=== PATIENT | female | born 1950 | race Caucasian/White ===

== ENCOUNTER → 2016-11-06 | Outpatient (CLI) | payer OTHER ==
--- NOTE | 2016-11-06 16:20 | MA ---
Screening Digital Mammogram With iCAD Analysis Clinical Indications: Routine screening. The patient has a personal history of left breast cancer rubén ated with lumpectomy, chemotherapy and radiation. Her maternal grandmother was diagnosed with breast cancer in her 70s. Technique: Standard cephalocaudal projections are obtained. Digital breast tomosynthesis was performe d in the MLO projection with reconstruction at 1.0 mm slice thickness and composite MLO views reconst ructed. This examination is processed by the iCAD computer aided detection system. Comparison: October 2015, October 2014, October 2013, November 2012, November 2011, December 2010, March 2009. Breast density: Type B; Scattered fibroglandular densities. Findings: CAD was reviewed. Asymmetry at the lumpectomy site in the upper left breast is stable. No m asses, suspicious calcifications or secondary signs of malignancy are seen. There has been no signifi cant change in the appearance of either breast. Vascular calcifications are noted. Impression: Benign post lumpectomy mammography, BI-RADS 2. Recommendation: Routine mammographic screening in one year as long as physical examination is negativ [facility] will send a result letter to the patient. Negative mammography should not preclude additional workup of a clinically suspicious finding. The patient's information is entered into a reminder system with a target due date for her next mammo gram.
--- NOTE | 2016-11-06 17:32 | DX ---
DEXA Bone Mineral Densitometry Clinical Indications: Postmenopausal, history of breast cancer, family history of osteoporosis, scre ening for osteoporosis Comparison: October 17, 2015 (low bone density) Technique: Bone Mineral Densitometry (BMD) by Dual Energy X-Ray Absorptiometry (DEXA) was performed utilizing the L[employer] have it! scanner. The lumbar spine was evaluated in the AP projection. The bilat eral hips and forearm were evaluated in the AP projection. Vertebral fracture assessment was also pe rformed. AP Lumbar Spine: The L1, L2, L3 and L4 vertebral bodies were evaluated. BMD: 1.116 gm/cm2 T-score: -0.6 SD Z-score: 1.3 SD No significant change. Incidentally noted are stable gallstones in the right abdomen. AP Left Hip: Total BMD: 0.743 gm/cm2 T-score: -2.1 SD Z-score: -0.5 SD No significant change. AP Right Hip: Total BMD: 0.655 gm/cm2 T-score: -2.8 SD Z-score: -1.2 SD Significantly decreased by 6.3% AP Left Forearm, 10/13: BMD: 0.659 gm/cm2 T-score: -2.5 SD Z-score: -0.8 SD No significant change. Vertebral Fracture Assessment: No significant fracture deformity. No prevertebral aortic calcificati on, significant marginal bone spurring, facet arthrosis, or intrinsic vertebral body sclerosis that would effect the accuracy of the lumbar spine BMD measurement. Conclusion: Considering the lowest measured site, the patient is now osteoporotic and at increased r isk for fracture. The ten year FRAX risk for any major osteoporotic fracture , which excludes the risk for a wrist frac ture, is 19.9% and for a hip fracture is 5%. Any bone loss in this patient is probably related to aging or estrogen deficiency. Consider excluding secondary metabolic causes of bone loss (reported to be present in as many as 30% of patients with normal Z scores). Basic laboratory evaluation might include blood chemistries (calci um, phosphorus, alkaline phosphatase, liver function tests, creatinine, total protein), complete bloo d count, serum 25-OH- vitamin D3 level, 24-hour urine calcium, serum TSH and serum PTH. Targeted l aboratory testing based on individual patient circumstances might include serum electrophoresis (SPEP or UPEP), anti-tissue transglutaminase antibody levels (celiac disease) , serum bone specific alkal ine phosphatase, bone turnover markers (urine, serum) or fibroblast growth factor 23 (FGF 23)(evaluat e for unexplained osteomalacia). If secondary causes are excluded, then consider initiating treatment with a bisphosphonate (such as F osamax, Actonel or Boniva). If the patient is unable to use an oral bisphosphonate, another agent suc h as IV bisphosphonates (Boniva or Reclast), teriparatide (Forteo), a selective estrogen receptor mo dulator (Evista) or denosumab ( anti RANKL monoclonal antibody) might be considered. If antiresorptive therapy is initiated and if clinically indicated, consider obtaining a baseline and 3 month followup bone resorption marker (NTX, CTX, TRAP5b or Pyridinoline, deoxypyridinoline) to mon itor the therapeutic effect. Supplementing an insufficient diet to achieve total intakes of 1500 mg calcium and 800 International Units of vitamin D daily should be considered. Osteoporosis prevention and treatment begins by modify ing risk factors. The patient should be encouraged to participate in a regular exercise program that includes weightbearing and muscle strengthening regimens, as is clinically appropriate. Recommend follow-up DEXA in one year to assess the efficacy of pharmacologic intervention and/or bianca ection of appropriate secondary cause.
== END ==
LOC: FIMAGING 10:31
PROVIDERS: ATTEND Internal Medicine Hematology & Oncology
DX: Z12.31 Encounter for screening mammogram for malignant neoplasm of breast (principal); Z13.820 Encounter for screening for osteoporosis; M81.0 Age-related osteoporosis without current pathological fracture; M85.80 Other specified disorders of bone density and structure, unspecified site; Z80.3 Family history of malignant neoplasm of breast; Z78.0 Asymptomatic menopausal state; Z82.62 Family history of osteoporosis
CPT/HCPCS: G0202

== ENCOUNTER → 2016-12-21 | Outpatient (CLI) | payer OTHER | LOC: BHFA 15:00 | PROVIDERS: ATTEND Internal Medicine Cardiovascular Disease | DX: I49.9 Cardiac arrhythmia, unspecified (principal); I34.0 Nonrheumatic mitral (valve) insufficiency ==

== ENCOUNTER → 2016-12-29 | Outpatient (CLI) | payer OTHER | LOC: BHFA 14:00 | PROVIDERS: ATTEND Internal Medicine Cardiovascular Disease | DX: I34.8 Other nonrheumatic mitral valve disorders (principal) ==

== ENCOUNTER → 2017-01-15 | Outpatient (CLI) | payer OTHER | LOC: BHFA 13:00 | PROVIDERS: ATTEND Internal Medicine Cardiovascular Disease | DX: I49.9 Cardiac arrhythmia, unspecified (principal); I34.0 Nonrheumatic mitral (valve) insufficiency ==

== ENCOUNTER 2017-01-25 07:36 | Day surgery (SDC) | payer OTHER ==
[2017-01-25] MEDS ORDERED: BENZOCAINE UNIT DOSE SPRAY HURRICAINE MM ONE (07:42)
[2017-01-25] MEDS ORDERED: diphenhydrAMINE 25 MG CAP PO ONE (07:42)
[2017-01-25] MEDS ORDERED: FAMOTIDINE 20 MG TAB PO ONE (07:42)
[2017-01-25] MEDS ORDERED: NS 1,000 ML IV ONE ×2 (07:42)
[2017-01-25] MEDS ORDERED: ASPIRIN EC 325 MG TAB PO ONE (07:42)
[2017-01-25] MEDS ORDERED: DIAZEPAM 5 MG TAB PO ONE (07:42)
[2017-01-25] MEDS ORDERED: MIDAZOLAM 2 MG/2 ML VIAL IVP ONE (07:42)
[2017-01-25] MEDS ORDERED: fentaNYL 100 MCG/2 ML INJ IVP ONE (07:42)
--- NOTE | 2017-01-25 08:16 | CPEKG ---
Heart Rate: 50 RR Interval: 1200 P-R Interval: 216 QRSD Interval: 112 QT Interval: 492 QTC Interval: 449 P Shipman: 54 QRS Shipman: 65 T Wave Shipman: 66 EKG Severity - ABNORMAL ECG - EKG Impression: SINUS RHYTHM EKG Impression: LEFT ATRIAL ABNORMALITY EKG Impression: NONSPECIFIC INTRAVENTRICULAR CONDUCTION DELAY EKG Impression: LEFT VENTRICULAR HYPERTROPHY Electronically Signed By: Gabriel Remy 25-Jan-2017 18:14:58
[2017-01-25] MEDS ORDERED: fentaNYL 100 MCG/2 ML INJ ONE (08:31)
[2017-01-25] MEDS ORDERED: MIDAZOLAM 2 MG/2 ML VIAL ONE (08:31)
[2017-01-25] MEDS ORDERED: LIDOCAINE 1% 30 ML SDV ONE (08:31)
[2017-01-25 08:32] LABS: % IMMATURE GRANULYOCYTES 0.2 % (0.0-1.1); ABSOLUTE IMMATURE GRANULOCYTES 0.01 10^3/uL (0.00-0.10); ADD DIFF? NO; ADD MORPH? NO; ADD SCAN? NO; ATYPICAL LYMPHOCYTE FLAG 10 (0-99); FRAGMENT RBC FLAG 0 (0-99); HEMATOCRIT 44.6 % (38.0-47.0); HEMOGLOBIN 15.1 g/dL (12.6-16.3); LEFT SHIFT FLG 0 (0-99); LIPEMIA HEMOLYSIS FLAG 90 (0-99); MEAN CELL HEMOGLOBIN 32.3 pg (27.9-34.1); MEAN CELL HEMOGLOBIN CONCENTR. 33.9 g/dL (32.4-36.7); MEAN CELL VOLUME 95.5 fL (81.5-99.8); MEAN PLATELET VOLUME 9.9 fL (8.7-11.7); PLATELET CLUMPS FLAG 0 (0-99); PLATELET COUNT 196 10^3/uL (150-400); RED BLOOD CELL COUNT 4.67 10^6/uL (4.18-5.33); RED CELL DISTRIBUTION WIDTH 13.3 % (11.5-15.2)
[2017-01-25] MEDS ORDERED: IOPAMIDOL (ISOVUE-370) 150 ML BTL IV ONE (08:32)
[2017-01-25 08:49] LABS: INR 1.1 (0.83-1.16); PROTIME(PATIENT) 14.1 SEC (12.0-15.0)
[2017-01-25 09:03] LABS: ANION GAP 9 mEq/L (8-16); CALCIUM 9.5 mg/dL (8.5-10.4); CARBON DIOXIDE 26 mEq/l (22-31); CHLORIDE 107 mEq/L (97-110); CHOLESTEROL 224 mg/dL (140-220); CHOLESTEROL/HDL RATIO 2.38 RATIO (1.00-4.44); CREATININE 0.7 mg/dL (0.6-1.0); GLOMERULAR FILTRATION RATE > 60; GLUCOSE 87 mg/dL (70-100); HIGH DENSITY LIPOPROTEIN 94 mg/dL (40-85); LDL/HDL RATIO 1.19 RATIO (1.00-3.22); LOW DENSITY LIPOPROTEIN 112 mg/dL (80-100); MAGNESIUM 2.1 mg/dL (1.6-2.3); NON-HIGH DENSITY LIPOPROTEIN 130 mg/dL (90-129); POTASSIUM 4.8 mEq/L (3.5-5.2); SODIUM 142 mEq/L (134-144); TRIGLYCERIDE 91 mg/dL (35-135); VERY LOW DENSITY LIPOPROTEINS 18 mg/dL (8-25)
[2017-01-25] MEDS ORDERED: ATROPINE SULFATE 1 MG/10 ML SYR ONE (11:35)
--- NOTE | 2017-01-25 13:02 | CPIP ---
[f rep st] INVASIVE CARDIAC PROCEDURE DATE OF PROCEDURE: 01/25/2017 PROCEDURES: 1. Coronary angiography. 2. Left ventriculography. 3. Right heart catheterization. INDICATION: Preoperative evaluation prior to mitral valve surgery. ACCESS: Patient was prepped and draped in sterile fashion. 1% lidocaine was used to anesthetize th e right inguinal region. A 6-Sri [place]ankan introducer sheath was placed selectively into the right common femoral artery via modified Seldinger technique. A 7-[place]ankan introducer sheath was placed selectivel y into the right common femoral vein via modified Seldinger technique. CORONARY ANGIOGRAPHY: A 6-[place]ankan JL4 was advanced to the left main coronary artery and images obtai carmela. The left main coronary artery bifurcated into an LAD and circumflex coronary arteries. The le ft main coronary artery appeared normal. The left anterior descending coronary artery gave rise to 1 prominent diagonal branch. The left anterior descending coronary artery and its complement of amisha gonal branches appeared normal. The circumflex coronary artery was a large vessel, but was nondomin ant. Circumflex coronary artery gave rise to 1 prominent OM branch as well as 2 smaller OM branches and a posterior lateral branch. The circumflex coronary artery and its branches appeared normal. A 6-[place]ankan JR4 was advanced to the right coronary artery and images obtained. The right coronary ar marilee is dominant. The right coronary artery appeared normal. LEFT VENTRICULOGRAPHY: A 6-[place]ankan pigtail catheter was advanced into the left ventricle and images obtained. The left ventricle was normal in size and had normal systolic function. The estimated ej ection fraction was 60%. 2 to 3+ mitral regurgitation could be appreciated. RIGHT HEART CATHETERIZATION: Right heart catheter was advanced in the right atrium and pressure and sat obtained. The right atrial pressure was 4 mmHg. The saturation was 80%. Catheter was then ad vanced in the right ventricle and pressure and sat obtained. The right ventricular pressure was 32/ 6 mmHg with a sat of 81%. Catheter was then advanced in the pulmonary artery position and pressure and sat obtained. The pulmonary artery pressure was 34/13 mmHg with a sat of 81%. The catheter was then advanced in the wedge position, and the pulmonary capillary wedge pressure obtained. The pulm onary capillary wedge pressure was 17 mmHg. The SVC saturation was 83%. The IVC saturation was 80% . The femoral artery saturation was 97%. Cardiac output 6.22. Cardiac index 3.88. COMPLICATIONS: None. CONCLUSIONS: 1. Normal coronary arteries. 2. Normal left ventricular size and systolic function with 2 to 3+ mitral regurgitation. 3. No significant pulmonary hypertension. /[id number]/MODL
[2017-01-25] MEDS ORDERED: OXYCODONE/APAP 5/325 TAB PO PRN (13:04)
[2017-01-25] MEDS ORDERED: HYDROCODONE/APAP 5/325 TAB PO PRN (13:04)
[2017-01-25] MEDS ORDERED: ONDANSETRON 4 MG/2 ML VIAL IVP PRN (13:05)
[2017-01-25] MEDS ORDERED: ATROPINE SULFATE 1 MG/ML VIAL IVP PRN (13:06)
[2017-01-25] MEDS ORDERED: NITROGLYCERIN 0.4 MG BTL SL PRN (13:07)
--- NOTE | 2017-01-27 15:16 | ECHO ---
[id number] + + [address] : : [facility] [address] : : [phone] + Transesophageal Echocardiographic Report + ---+ :Name: IVAN WALTON MStudy Date: 01/25/2017 09:51 AM : : Hospital Admission Number: [id number] Location: [facility]: :: 1950 Gender: Female : :Age: 66 yrs Race: WH : :Reason For Study: Eval Mitral Valve : :History: MVP, Murmur : + ---+ Left Ventricle The left ventricular ejection fraction is normal. Right Ventricle The right ventricle is normal in size and function. Atria Injection of contrast documented no interatrial shunt. The interatrial septum is intact with no evidence for an atrial septal defect. No left atrial mass or thrombus visualized. No thrombus is detected in the left atrial appendage. Mitral Valve There is mild mitral annular calcification. The mitral valve leaflets appear myxomatous. There is severe mitral valve prolapse. There is no mitral valve stenosis. There is severe mitral regurgitation. Tricuspid Valve The tricuspid valve leaflets appear thickened, hooded, and/or redundant, consistent with myxomatous degeneration. There is trace to mild tricuspid regurgitation. Aortic Valve The aortic valve is trileaflet. There is no aortic stenosis. Mild to moderate aortic regurgitation. Pulmonic Valve The pulmonic valve is normal in structure and function. Conclusion A 2D transesophageal echocardiogram with color flow Doppler was performed. 1. There is mild mitral annular calcification. The mitral valve leaflets appear myxomatous. There is severe mitral valve prolapse with severe mitral regurgitation. 2. The tricuspid valve leaflets appear thickened, hooded, and/or redundant, consistent with myxomatous degeneration. There is trace to mild tricuspid regurgitation. 3. The aortic valve is trileaflet. There is no aortic stenosis. Mild to moderate aortic regurgitation. 4. The left ventricular ejection fraction is normal. 5. The interatrial septum is intact with no evidence for an atrial septal defect. Injection of contrast documented no interatrial shunt. Final Reading Physician: Gabriel Remy MD electronically signed on 01/27/2017 03:16 PM Ordering Physician: Gabriel Remy Performed By: Gabriel Remy MD
== END 2017-01-25 16:58 | disposition home or self-care (01) ==
LOC: FCATH 07:36
PROVIDERS: ATTEND Internal Medicine Cardiovascular Disease
PROC: B2111ZZ Fluoroscopy of Multiple Coronary Arteries using Low Osmolar Contrast (ICD-10-PCS; principal; 2017-01-25)
PROC: 4A023N6 Measurement of Cardiac Sampling and Pressure, Right Heart, Percutaneous Approach (ICD-10-PCS; principal; 2017-01-25)
PROC: B2161ZZ Fluoroscopy of Right and Left Heart using Low Osmolar Contrast (ICD-10-PCS; principal; 2017-01-25)
DX: Z01.810 Encounter for preprocedural cardiovascular examination (principal); I34.0 Nonrheumatic mitral (valve) insufficiency; Z85.3 Personal history of malignant neoplasm of breast
CPT/HCPCS: C1760; J0461; J1644; J2250; J3010; Q9967

== ENCOUNTER → 2017-02-09 | Outpatient (CLI) | payer OTHER | LOC: FIMAGING 15:12 | PROVIDERS: ATTEND Thoracic Surgery (Cardiothoracic Vascular Surgery) | DX: Z01.810 Encounter for preprocedural cardiovascular examination (principal) ==

== ENCOUNTER 2017-02-12 05:53 | Inpatient (IN) | payer OTHER ==
[2017-02-09 16:33] LABS: HEMOGLOBIN A1C 5.2 % (4.0-6.0)
[2017-02-12] MEDS ORDERED: niCARdipine/NACL 200 ML IV ONE (06:00)
[2017-02-12] MEDS ORDERED: ceFAZolin 2 GM/DEXTROSE 100 ML IV ONE (06:00)
[2017-02-12] MEDS ORDERED: CITRATE DEXTROSE SOLN 500 ML BAG MISC ONE (06:00)
[2017-02-12] MEDS ORDERED: INSULIN REGULAR HUMAN 100 UNIT in NS 100 ML IV ONE (06:00)
[2017-02-12] MEDS ORDERED: NS 1,000 ML IV ONE (06:00)
[2017-02-12] MEDS ORDERED: SODIUM BICARBONATE 20 MEQ, LIDOCAINE 1% 10 ML in NORMOSOL-R 1,000 ML MISC ONE (06:00)
[2017-02-12] MEDS ORDERED: PHENYLEPHRINE HCL 50 MG in NS 250 ML IV ONE (06:00)
[2017-02-12] MEDS ORDERED: LIDOCAINE 1% 5 ML SDV ID PRN ×2 (06:00→06:50)
[2017-02-12] MEDS ORDERED: NOREPINEPHRINE BITARTRATE 16 MG in NS 250 ML IV ONE (06:00)
[2017-02-12] MEDS ORDERED: MANNITOL 25% 12.5 GM/50 ML VIAL IV ONE (06:00)
[2017-02-12] MEDS ORDERED: AMINOCAPROIC ACID 5 GM/20 ML VIAL IV ONE (06:00)
[2017-02-12] MEDS ORDERED: LIDOCAINE 1% 2 ML INJ ONE (06:13)
[2017-02-12] MEDS ORDERED: PROTAMINE SULFATE 50 MG/5 ML VIAL IVP ONE (06:19)
[2017-02-12] MEDS ORDERED: ALBUMIN 5% 250 ML BOTTLE IV ONE (06:19)
[2017-02-12] MEDS ORDERED: LIDOCAINE 2% 100 MG/5 ML SYR ONE (06:20)
[2017-02-12] MEDS ORDERED: NA BICARBONATE 50 MEQ/50 ML VIAL ONE (06:20)
[2017-02-12] MEDS ORDERED: POTASSIUM Cl (KCl) 20 MEQ/50 ML BAG IV ONE (06:20)
[2017-02-12] MEDS ORDERED: MILRINONE/DEXTROSE/100 ML BAG IV ONE (06:20)
[2017-02-12] MEDS ORDERED: AMINOCAPROIC ACID 5 GM/20 ML VIAL ONE (06:20)
[2017-02-12] MEDS ORDERED: CALCIUM CHLORIDE 1 GM/10 ML INJ ONE (06:20)
[2017-02-12] MEDS ORDERED: MAGNESIUM SULFATE 1 GM/2 ML VIAL ONE (06:21)
[2017-02-12] MEDS ORDERED: CITRATE DEXTROSE SOLN 500 ML BAG ONE (06:21)
[2017-02-12] MEDS ORDERED: DOPamine/DEXTROSE/250 ML BAG IV ONE (06:21)
[2017-02-12] MEDS ORDERED: ADENOSINE 6 MG/2 ML VIAL ONE (06:21)
[2017-02-12] MEDS ORDERED: AMIODARONE HCL 150 MG/3 ML VIAL ONE (06:21)
[2017-02-12] MEDS ORDERED: niCARdipine/NACL/200 ML BAG IV ONE (06:21)
[2017-02-12] MEDS ORDERED: ceFAZolin 1 GM VIAL ONE (06:22)
[2017-02-12] MEDS ORDERED: methylPREDNISolone SOD SUCC 1 GM/8 ML VIAL ONE (06:22)
[2017-02-12] MEDS ORDERED: HEPARIN 10,000 UNIT/10 ML MDV ONE (06:22)
[2017-02-12] MEDS ORDERED: LR 1,000 ML IV ONE (06:50)
[2017-02-12] MEDS ORDERED: MIDAZOLAM 2 MG/2 ML VIAL ONE (07:07)
[2017-02-12] MEDS ORDERED: PROPOFOL/EMULSION 500 MG/50 ML BOTTLE IV ONE (07:13)
[2017-02-12] MEDS ORDERED: REMIFENTANIL HCL 1 MG VIAL ONE (07:13)
[2017-02-12] MEDS ORDERED: fentaNYL 100 MCG/2 ML INJ ONE ×2 (07:13)
[2017-02-12] MEDS ORDERED: DEXAMETHASONE 4 MG/ML VIAL ONE (07:16)
[2017-02-12] MEDS ORDERED: METOCLOPRAMIDE 10 MG/2 ML VIAL ONE (07:16)
[2017-02-12] MEDS ORDERED: ROCURONIUM 100 MG/10 ML VIAL ONE (07:17)
[2017-02-12] MEDS ORDERED: MINERAL OIL 10 ML VIAL TP ONE (07:18)
[2017-02-12] MEDS ORDERED: DEXMEDETOMIDINE HCL 400 MCG in NS 100 ML IV ONE (08:00)
[2017-02-12] MEDS ORDERED: morphINE *ANESTHESIA ONLY* 10 MG/ML VIAL ONE (08:30)
[2017-02-12] MEDS ORDERED: MAGNESIUM SULF 2 GM/WATER 50 ML BAG IV ONE (11:14)
[2017-02-12] MEDS ORDERED: D50W 25 GM/50 ML SYR IVP PRN (11:37)
[2017-02-12] MEDS ORDERED: fentaNYL 100 MCG/2 ML INJ IVP PRN (11:37)
[2017-02-12] MEDS ORDERED: MAGNESIUM HYDROXIDE 30 ML UDCUP PO PRN (11:37)
[2017-02-12] MEDS ORDERED: ONDANSETRON DISINTEGRATING 4 MG TAB PO PRN (11:37)
[2017-02-12] MEDS ORDERED: MEPERIDINE 25 MG/ML SYR IVP PRN (11:37)
[2017-02-12] MEDS ORDERED: POLYETHYLENE GLYCOL 3350 17 GM PKT PO PRN (11:37)
[2017-02-12] MEDS ORDERED: MAGNESIUM SULF 2 GM/WATER 50 ML IV ONE (11:37)
[2017-02-12] MEDS ORDERED: PANTOPRAZOLE SODIUM 40 MG in NS 100 ML IV ONE (11:37)
[2017-02-12] MEDS ORDERED: LACTULOSE 20 GM/30 ML UDCUP PO PRN (11:37)
[2017-02-12] MEDS ORDERED: CEPACOL LOZENGE PO PRN (11:37)
[2017-02-12] MEDS ORDERED: ONDANSETRON 4 MG/2 ML VIAL IVP PRN (11:37)
[2017-02-12] MEDS ORDERED: BISACODYL 10 MG SUPP PR PRN (11:37)
[2017-02-12] MEDS ORDERED: SODIUM CL NASAL 45 ML BTL EACHNARE PRN (11:37)
[2017-02-12] MEDS ORDERED: ACETAMINOPHEN 650 MG SUPP PR PRN (11:37)
[2017-02-12] MEDS ORDERED: METOCLOPRAMIDE 10 MG/2 ML VIAL IVP PRN (11:37)
[2017-02-12] MEDS ORDERED: NS 1,000 ML IV SCH (11:45)
[2017-02-12] MEDS ORDERED: INSULIN REGULAR HUMAN 100 UNIT in NS 100 ML IV SCH (12:00)
[2017-02-12 12:30] LABS: CALCULATED OXYGEN SATURATION 95 % (92-95)
[2017-02-12] MEDS: ALBUMIN 5% 250 ML IV PRN ×2 (12:30→13:35)
[2017-02-12] MEDS: MUPIROCIN 2% 22 GM OINT NS SCH ×3 (12:49→19:52)
--- NOTE | 2017-02-12 12:49 | POSTOPPROG ---
Post Op Note Date of Operation: 02/12/17 Surgeon: Stephen Ortiz Lisw: Caden Anesthesiologist: Magui Anesthesia: GET(General Endotracheal) Pre-op Diagnosis: MR, AI, AF Procedure: complex MV repair #36 ring, CMIV Inf/Abcess present in the surg proc area at time of surgery?: No EBL: 100-500 Drains: Other (2 blakes)
[2017-02-12] MEDS: ceFAZolin 2 GM/DEXTROSE 100 ML IV SCH ×2 (13:39→21:35)
--- NOTE | 2017-02-12 13:59 | GOP ---
[f rep st] OPERATIVE REPORT DATE OF OPERATION: 02/12/2017 SURGEON: Stephen Ortiz DO ACADEMIC SUPPORT COORDINATOR: Michaela Negrete, PAC ANESTHESIOLOGIST: Preet Mirza MD PREOPERATIVE DIAGNOSIS: 1. Severe mitral insufficiency. 2. Mild aortic insufficiency. 3. Persistent atrial fibrillation. POSTOPERATIVE DIAGNOSIS: 1. Severe mitral insufficiency. 2. Mild aortic insufficiency. 3. Persistent atrial fibrillation. PROCEDURE PERFORMED: 1. Bray- Maze IV both left and right side ablations, utilizing both cryo and radiofrequency ablation . 2. Resection of left atrial appendage with Atra clip. 3. Complex mitral valve repair with sliding leaflet plasty of P2, reduction of posterior leaflet he ight, and #36 physio annuloplasty ring. FINDINGS: DESCRIPTION OF PROCEDURE: The patient presented with atrial fibrillation and symptomatic severe joan ral insufficiency with marked left atrial enlargement. She was consented for mitral valve repair. Because of her aortic insufficiency, minimally invasive procedure was not offered. There was concer n that she may need aortic valve replacement as well, although she was marginal based on criteria. She was consented for surgery, brought to the operating room, intubated, monitoring lines were place d. She was prepped and draped in sterile classical manner. Transesophageal echo confirmed large le aflets with anteriorly directed jet consistent with posterior leaflet pathology. She was noted to h ave markedly increased dimensions of her posterior leaflet and the potential for ORTIZ post repair. T his was taken into consideration. Sternotomy was performed. She was heparinized, cannulated by cav al cannulas, cardiopulmonary bypass was begun. We did GP testing on the right side and found 3 site s that were ablated. We attempted to do it on the left, however left atrial appendage was enormous, at least 5.5 cm at the base and at least 5 cm long. It should be also noted that all 4 chambers we re markedly enlarged, given this very tiny lady. I was unable to do GP testing on the left just bec ause of safe exposure. For that reason, it was aborted. We then proceeded with arresting the heart , and because of her large left atrium had difficulty encircling it with a clamp and, for that reaso n, decided to use cryo after arresting the heart. Initially, I did the coronary sinus with cryoabla tion at the terminus of the right and left vessels, which was marked for future identification. Thi s was done for 2 minutes. I then resected part of the left atrial appendage, and placed a clamp acr oss into the left superior pulmonary vein, and did multiple ablations there. We then placed the lar gest Atra clip across the base of the appendage with occlusion. I then exposed the mitral valve thr ough the right superior pulmonary vein and placed retractors. The patient had a markedly enlarged l eft atrium, approximately 6 cm. Myxomatous valve was a typical Springer's thickened, billowing, and f illing most of the left atrium. I initially did cryo to the isthmus and for the floor and roof lesi on, and then did an antrum cryo on the left side, connecting with those previous lines in order to c reate a box set. I then began inspection of the valve. I placed annuloplasty sutures circumferenti ally to better expose it. It was very thickened and fibrotic. There was no true chordal rupture, h owever there was marked anteriorly directed leakage with distention of the ventricle. I then did a quadrangular resection, and then detached the posterior leaflet, lowering the height of it to approx imately 1/3 of what would ultimately be the AP diameter. These were reapproximated with Sedan-Miguelito mccall tures on the leaflet and 4-0 Prolene on the leaflet to anulus. Distention of the ventricle revealed no regurgitation at that point. I then sized the patient for a 36-38 mm ring, I felt that 36 would get better stronger apposition and should not create ORTIZ, having reduced the height of the posterio r leaflet. This was secured in place with Cor-Knots. Distention of the ventricle revealed no regur gitation. Left atrium was then closed. CO2 had been infused throughout the procedure. The aortic insufficiency never presented a problem with administering antegrade cardioplegia, and an LV sump wa s placed across the valve for early clamp removal on suction. We did this and removed the clamp wit h suction on the ascending aortic vent and LV sump, while the right-sided lesion set was performed. Initially, I did a vertical atriotomy and connected that to the isthmus with cryo, and then did the free wall superior and inferior vena caval lines, avoiding sinus node, utilizing the radiofrequency clamp with multiple lesion sets performed. We then closed the right atrium. With the patient in T rendelenburg, she was allowed to rewarm. The air was removed with venting. The vents were then rem farhad from the left ventricle. She was then weaned from bypass without difficulty. Echo revealed no regurgitation whatsoever, with good coaptation and no ORTIZ. Heparin was reversed with protamine. T he cannula was removed and oversewn. Two ventricular pacing wires, 2 mediastinal drains were placed . The thymic fat and pericardium were closed. The patient was returned to ICU extubated in stable condition. /[id number]/MODL
[2017-02-12] MEDS: POTASSIUM Cl (KCl) 50 ML IV PRN ×2 (14:27→14:28)
[2017-02-12 14:33] LABS: CALCULATED OXYGEN SATURATION 98 % (92-95)
[2017-02-12] MEDS: KETOROLAC 15 MG/1 ML SDV IVP PRN ×2 (16:14→21:53)
[2017-02-12] MEDS: ACETAMINOPHEN 325 MG TAB PO PRN (19:32)
[2017-02-12] MEDS: CYCLOSPORINE 0.05% 1 EACH BOX EACHEYE SCH (19:55)
[2017-02-12 21:57] LABS: HEMATOCRIT 31.2 % (38.0-47.0); HEMOGLOBIN 10.6 g/dL (12.6-16.3); MEAN CELL HEMOGLOBIN 32.8 pg (27.9-34.1); MEAN CELL VOLUME 96.6 fL (81.5-99.8); RED BLOOD CELL COUNT 3.23 10^6/uL (4.18-5.33); RED CELL DISTRIBUTION WIDTH 13.6 % (11.5-15.2)
[2017-02-12] MEDS: traMADol 50 MG TAB PO PRN (23:15)
[2017-02-13] MEDS: HYDROCODONE/APAP 5/325 TAB PO PRN ×4 (00:27→20:39)
[2017-02-13] MEDS: KETOROLAC 15 MG/1 ML SDV IVP PRN ×2 (04:42→20:40)
[2017-02-13 04:44] LABS: % IMMATURE GRANULYOCYTES 0.3 % (0.0-1.1); ABSOLUTE IMMATURE GRANULOCYTES 0.03 10^3/uL (0.00-0.10); ADD DIFF? NO; ADD MORPH? NO; ADD SCAN? NO; ATYPICAL LYMPHOCYTE FLAG 0 (0-99); FRAGMENT RBC FLAG 0 (0-99); HEMATOCRIT 30.4 % (38.0-47.0); HEMOGLOBIN 10.3 g/dL (12.6-16.3); LEFT SHIFT FLG 50 (0-99); LIPEMIA HEMOLYSIS FLAG 90 (0-99); MEAN CELL HEMOGLOBIN 32.5 pg (27.9-34.1); MEAN CELL HEMOGLOBIN CONCENTR. 33.9 g/dL (32.4-36.7); MEAN CELL VOLUME 95.9 fL (81.5-99.8); MEAN PLATELET VOLUME 9.7 fL (8.7-11.7); PLATELET CLUMPS FLAG 0 (0-99); PLATELET COUNT 100 10^3/uL (150-400); RED BLOOD CELL COUNT 3.17 10^6/uL (4.18-5.33); RED CELL DISTRIBUTION WIDTH 13.6 % (11.5-15.2)
[2017-02-13 04:55] LABS: ANION GAP 5 mEq/L (8-16); CALCIUM 7.6 mg/dL (8.5-10.4); CARBON DIOXIDE 24 mEq/l (22-31); CHLORIDE 110 mEq/L (97-110); CREATININE 0.6 mg/dL (0.6-1.0); GLOMERULAR FILTRATION RATE > 60; GLUCOSE 94 mg/dL (70-100); MAGNESIUM 2.4 mg/dL (1.6-2.3); POTASSIUM 5.3 mEq/L (3.5-5.2); SODIUM 139 mEq/L (134-144)
[2017-02-13] MEDS: ceFAZolin 2 GM/DEXTROSE 100 ML IV SCH ×3 (05:00→22:18)
[2017-02-13] MEDS ORDERED: FUROSEMIDE 20 MG/2 ML VIAL ONE (05:06)
[2017-02-13] MEDS ORDERED: FUROSEMIDE 20 MG/2 ML VIAL IV ONE (05:30)
[2017-02-13] MEDS ORDERED: HEPARIN 5,000 UNIT/0.5 ML SYR SC SCH (06:00)
--- NOTE | 2017-02-13 07:38 | SOAPPROG ---
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 Extubated in the OR. Hemodynamically stable early postop course without vasoactive support, tachyarrhythmias, back up pacing or sig volume overload. Antithrombotic prophylaxis with Coumadin. Target INR 2-3. Duration 3 mo pending stability of rhythm. PAF - Preop mitigation with metoprolol. Holding SR s/p CM4. To resume BB prophylaxis, as allowed by BP. Antithrombotic prophylaxis as per MV. Adjunctive baby ASA until INR stable in therapeutic range. Mild to moderate AI - No significant regurgitation by intraop assessment and replacement deferred. Surveillance per cards. Acute expected blood loss anemia - Stable. No transfusions required. Plan: Routine POD#1 orders re lines, drains, wires, orals and mobility. Start coumadin. 2.5 mg today. Colloid prn SBP < 90. Tx to PCU. 02/13/17 07:33 Subjective: Rough night, falling behind on pain control. Better this am. Tolerating sips/ chips and OOB. Pleased that rhythm "behaving". Objective: Vital Signs Temp Pulse Resp BP Pulse Ox 36.7 C 65 14 109/58 L 98 02/13/17 04:00 02/13/17 06:51 02/13/17 06:51 02/13/17 06:51 02/13/17 06:51 Laboratory Results 02/13/17 04:25 02/13/17 04:25 02/12/17 02/13/17 02/14/17 05:59 05:59 05:59 Intake Total 1976.5 Output Total 1858 Balance 118.5 Holding SR. Lowish SBP without reduced UOP or bump in Cr. Minimal suppl O2 req. CXR-> No PTX. No pulm vasc congestion. Small pl eff, L>R. CTOP thinning. No AL. Balanced I/Os. Only +4 kg. Physical Exam - Physical Exam General Appearance: alert, no apparent distress Respiratory: lungs clear (grossly), other (blakes x 2 y-d to pleurovac, serosang drainage, +tidal, no air leak) Cardiac/Chest: regular rate, rhythm, other (Sternum grossly stable. Sternotomy CDI. Vwire intact.) Abdomen: normal bowel sounds, non-tender, soft Skin: warm/dry Extremities: swelling (trace) ICD10 Worksheet Patient Problems: Problems Problem Status Onset Acute blood loss anemia Acute Mild aortic valve regurgitation Acute Myxomatous mitral valve regurgitation Acute PAF (paroxysmal atrial fibrillation) Acute S/P Maze operation for atrial fibrillation Acute ~02/12/17 S/P mitral valve repair Acute ~02/12/17
[2017-02-13] MEDS: PANTOPRAZOLE SODIUM 40 MG TAB PO SCH (08:14)
[2017-02-13] MEDS: buPROPion 75 MG TAB PO SCH (08:14)
[2017-02-13] MEDS: ASPIRIN 81 MG CHEWABLE TAB PO SCH (08:14)
[2017-02-13] MEDS: MUPIROCIN 2% 22 GM OINT NS SCH ×2 (08:20→21:17)
[2017-02-13] MEDS: CYCLOSPORINE 0.05% 1 EACH BOX EACHEYE SCH ×2 (08:21→21:10)
[2017-02-13] MEDS: traMADol 50 MG TAB PO PRN ×2 (08:28→18:21)
[2017-02-13] MEDS: ACETAMINOPHEN 325 MG TAB PO PRN (08:28)
[2017-02-13] MEDS ORDERED: ALBUMIN 5% 250 ML BOTTLE IV ONE (09:04)
[2017-02-13] MEDS ORDERED: BISACODYL 10 MG SUPP PR PRN (10:34)
[2017-02-13 13:27] LABS: POTASSIUM 5.2 mEq/L (3.5-5.2)
[2017-02-13] MEDS ORDERED: WARFARIN SODIUM 2.5 MG TAB PO ONE (16:00)
[2017-02-13] MEDS: SENNOSIDES/DOCUSATE SODIUM TAB PO SCH (20:35)
[2017-02-13] MEDS: LORazepam 0.5 MG TAB PO PRN (22:23)
[2017-02-14] MEDS: HYDROCODONE/APAP 5/325 TAB PO PRN ×3 (05:43→20:30)
[2017-02-14] MEDS: KETOROLAC 15 MG/1 ML SDV IVP PRN ×2 (05:43→20:31)
[2017-02-14] MEDS: traMADol 50 MG TAB PO PRN ×2 (05:43→17:31)
[2017-02-14 06:33] LABS: % IMMATURE GRANULYOCYTES 0.4 % (0.0-1.1); ABSOLUTE IMMATURE GRANULOCYTES 0.04 10^3/uL (0.00-0.10); ADD DIFF? NO; ADD MORPH? NO; ADD SCAN? NO; ATYPICAL LYMPHOCYTE FLAG 0 (0-99); FRAGMENT RBC FLAG 0 (0-99); HEMATOCRIT 27.7 % (38.0-47.0); HEMOGLOBIN 9.4 g/dL (12.6-16.3); LEFT SHIFT FLG 30 (0-99); LIPEMIA HEMOLYSIS FLAG 90 (0-99); MEAN CELL HEMOGLOBIN 33.2 pg (27.9-34.1); MEAN CELL HEMOGLOBIN CONCENTR. 33.9 g/dL (32.4-36.7); MEAN CELL VOLUME 97.9 fL (81.5-99.8); MEAN PLATELET VOLUME 10.8 fL (8.7-11.7); PLATELET CLUMPS FLAG 0 (0-99); PLATELET COUNT 92 10^3/uL (150-400); RED BLOOD CELL COUNT 2.83 10^6/uL (4.18-5.33)
[2017-02-14 06:39] LABS: INR 1.46 (0.83-1.16); PROTIME(PATIENT) 17.7 SEC (12.0-15.0)
[2017-02-14 06:56] LABS: ANION GAP 3 mEq/L (8-16); CALCIUM 8.4 mg/dL (8.5-10.4); CARBON DIOXIDE 26 mEq/l (22-31); CHLORIDE 104 mEq/L (97-110); CREATININE 0.8 mg/dL (0.6-1.0); GLOMERULAR FILTRATION RATE > 60; GLUCOSE 119 mg/dL (70-100); POTASSIUM 4.9 mEq/L (3.5-5.2); SODIUM 133 mEq/L (134-144)
--- NOTE | 2017-02-14 08:16 | SOAPPROG ---
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 Extubated in the OR. Hemodynamically stable early postop course without vasoactive support, tachyarrhythmias, back up pacing or sig volume overload. Antithrombotic prophylaxis with Coumadin. Target INR 2-3. Duration 3 mo pending stability of rhythm. PAF - Preop mitigation with metoprolol. Holding SR s/p CM4. BB prophylaxis, as allowed by BP. Antithrombotic prophylaxis as per MV. Adjunctive baby ASA until INR stable in therapeutic range. Mild to moderate AI - No significant regurgitation by intraop assessment and replacement deferred. Surveillance per cards. Acute expected blood loss anemia - Stable. No transfusions required. Plan: Start gentle diuresis. Start metoprolol 12.5 mg BID w conservative hold parameters. Remove chest tubes and TCPW. Coumadin 2.5 mg today. Wean O2. Baseline postop echo Mon. Cont inc activity and pulm toilet. Dispo - Anticipate home in 48hr. 02/14/17 08:15 Subjective: Doing ok. Slept well. Improving mobility, stamina, and appetite. Objective: Vital Signs Temp Pulse Resp BP Pulse Ox 37.2 C 68 20 109/44 L 97 02/14/17 07:33 02/14/17 07:33 02/14/17 07:33 02/14/17 07:33 02/14/17 07:33 Laboratory Results 02/14/17 06:00 02/14/17 06:00 02/13/17 02/14/17 02/15/17 05:59 05:59 05:59 Intake Total 1976.5 1240 Output Total 1858 740 Balance 118.5 500 PT 17.7 SEC (12.0-15.0) H 02/14/17 06:00 INR 1.46 (0.83-1.16) H 02/14/17 06:00 Holding SR. Upward creep in SBPs. Minimal suppl O2 req. CXR -> no pulm vasc congestion, tiny b/l pl eff L>R. CTOP at removal criteria. Balanced I/Os. Appropriate rise in INR. Physical Exam - Physical Exam General Appearance: alert, no apparent distress Respiratory: lungs clear Cardiac/Chest: regular rate, rhythm (hyperdynamic), diastolic murmur, friction rub, other (Sternum grossly stable. Sternotomy CDI) Abdomen: non-tender, soft Skin: warm/dry Extremities: other (no visible edema) ICD10 Worksheet Patient Problems: Problems Problem Status Onset Acute blood loss anemia Acute Mild aortic valve regurgitation Acute Myxomatous mitral valve regurgitation Acute PAF (paroxysmal atrial fibrillation) Acute S/P Maze operation for atrial fibrillation Acute ~02/12/17 S/P mitral valve repair Acute ~02/12/17
[2017-02-14] MEDS: buPROPion 75 MG TAB PO SCH ×2 (08:39→17:31)
[2017-02-14] MEDS: SENNOSIDES/DOCUSATE SODIUM TAB PO SCH ×2 (08:40→20:30)
[2017-02-14] MEDS: ASPIRIN 81 MG CHEWABLE TAB PO SCH (08:40)
[2017-02-14] MEDS: METOPROLOL TARTRATE 25 MG TAB PO SCH ×2 (08:41→20:31)
[2017-02-14] MEDS: PANTOPRAZOLE SODIUM 40 MG TAB PO SCH (08:41)
[2017-02-14] MEDS: CHOLECALCIFEROL VIT D3 1,000 UNITS TAB PO SCH (08:41)
[2017-02-14] MEDS: CYCLOSPORINE 0.05% 1 EACH BOX EACHEYE SCH ×2 (08:42→20:47)
[2017-02-14] MEDS ORDERED: FUROSEMIDE 20 MG TAB PO SCH (09:00)
[2017-02-14] MEDS: ACETAMINOPHEN 325 MG TAB PO PRN (13:01)
[2017-02-14] MEDS ORDERED: WARFARIN SODIUM 2.5 MG TAB PO ONE (16:00)
[2017-02-14] MEDS: OMEGA-3 FATTY ACIDS 1,000 MG CAP PO SCH (22:43)
[2017-02-14] MEDS: LORazepam 0.5 MG TAB PO PRN (23:43)
[2017-02-15] MEDS: traMADol 50 MG TAB PO PRN ×3 (05:59→18:32)
[2017-02-15 06:36] LABS: HEMATOCRIT 24.4 % (38.0-47.0)
[2017-02-15 06:40] LABS: INR 1.97 (0.83-1.16); PROTIME(PATIENT) 22.5 SEC (12.0-15.0)
[2017-02-15 07:23] LABS: POTASSIUM 4.7 mEq/L (3.5-5.2)
[2017-02-15] MEDS: PANTOPRAZOLE SODIUM 40 MG TAB PO SCH (08:17)
[2017-02-15] MEDS: FERROUS SULFATE 325 MG TAB PO SCH (08:17)
[2017-02-15] MEDS: SENNOSIDES/DOCUSATE SODIUM TAB PO SCH ×2 (08:17→20:48)
[2017-02-15] MEDS: OMEGA-3 FATTY ACIDS 1,000 MG CAP PO SCH (08:17)
[2017-02-15] MEDS: METOPROLOL TARTRATE 25 MG TAB PO SCH ×2 (08:19→20:48)
[2017-02-15] MEDS: ASPIRIN 81 MG CHEWABLE TAB PO SCH (08:19)
[2017-02-15] MEDS: CYCLOSPORINE 0.05% 1 EACH BOX EACHEYE SCH ×2 (08:22→20:51)
--- NOTE | 2017-02-15 08:34 | SOAPPROG ---
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 Extubated in the OR. Hemodynamically stable early postop course without vasoactive support, tachyarrhythmias, back up pacing or sig volume overload. Tubes and wires out. Antithrombotic prophylaxis with Coumadin. Target INR 2-3. Duration 3 mo pending stability of rhythm. PAF - Preop mitigation with metoprolol. Holding SR s/p CM4. BB prophylaxis, as allowed by BP. Maintenance amio dose x 4-6 wks. Antithrombotic prophylaxis as per MV. Adjunctive baby ASA until INR stable in therapeutic range. Mild to moderate AI - No significant regurgitation by intraop assessment and replacement deferred. Surveillance per cards. Acute expected blood loss anemia - Stable. No transfusions required. Lowish H/H well tolerated. 2 wk course Fe suppl started. Plan: Hold diuresis. Cont metoprolol 12.5 mg BID w conservative hold parameters. Add amio 400 mg daily. Decr Coumadin to 2 mg today. Wean O2. Baseline postop echo today. Cont inc activity and pulm toilet. Dispo - Anticipate home tomorrow. 02/15/17 08:32 Subjective: Cont to feel well. Improving mobility and stamina. Stairwork without difficulty. Looking forward to home tomorrow. Objective: Vital Signs Temp Pulse Resp BP Pulse Ox 37.2 C 71 17 97/54 L 86 L 02/15/17 08:00 02/15/17 08:19 02/15/17 08:00 02/15/17 08:19 02/15/17 08:05 Laboratory Results 02/15/17 05:55 02/15/17 05:55 02/14/17 02/15/17 02/16/17 05:59 05:59 05:59 Intake Total 1240 750 Output Total 740 1305 Balance 500 -555 PT 22.5 SEC (12.0-15.0) H 02/15/17 05:55 INR 1.97 (0.83-1.16) H 02/15/17 05:55 Holding SR. Insufficient BP to inc BB. Off O2 w activity. Adequate I/Os. Labs ok. - Pending Discharge Pending Discharge Within 24 Hours: Yes Pending Discharge Date: 02/16/17 Pending Discharge Time: 11:00 Physical Exam - Physical Exam General Appearance: alert, no apparent distress Respiratory: lungs clear Cardiac/Chest: regular rate, rhythm, diastolic murmur, other (Sternum grossly stable. Sternotomy CDI) Abdomen: normal bowel sounds, non-tender, soft Skin: warm/dry Extremities: other (no visible edema) ICD10 Worksheet Patient Problems: Problems Problem Status Onset Acute blood loss anemia Acute Mild aortic valve regurgitation Acute Myxomatous mitral valve regurgitation Acute PAF (paroxysmal atrial fibrillation) Acute S/P Maze operation for atrial fibrillation Acute ~02/12/17 S/P mitral valve repair Acute ~02/12/17
[2017-02-15] MEDS: buPROPion 75 MG TAB PO SCH ×2 (09:01→18:00)
[2017-02-15] MEDS: CHOLECALCIFEROL VIT D3 1,000 UNITS TAB PO SCH (09:01)
[2017-02-15] MEDS: AMIODARONE HCL 200 MG TAB PO SCH (09:04)
[2017-02-15] MEDS: ACETAMINOPHEN 325 MG TAB PO PRN (11:26)
--- NOTE | 2017-02-15 12:08 | ECHO ---
[id number] + + [address] : : [place] [address] : : [phone] + + Adult Echocardiographic Report + ---+ :Name: IVAN WALTON MStudy Date: 02/15/2017 08:27 AM : : Hospital Admission Number: [id number] Location: 213: :: 1950 Gender: Female Height: 65 in : :Age: 66 yrs Race: WH Weight: 121 lb : :Reason For Study: Eval LV Fx, Mitral Valve : : BSA: 1.6 meters2 : :History: Post OP MV #36 physio ring : + ---+ MMode/2D Measurements \T\ Calculations IVSd: 1.2 cm LVIDd: 4.8 cm FS: 45.4 % MV Diam: 3.6 cm LVPWd: 1.2 cm LVIDs: 2.6 cm EDV(Teich): 105.1 ml ESV(Teich): 24.5 ml EF(Teich): 76.7 % Ao root diam: 3.4 cm ACS: 2.1 cm Normal Measurement Values: + + :LVIDd (3.5-5.7cm) IVSd (0.6-1.1cm) LVPWd (0.6-1.1cm) Aortic Root (2.0-3.7cm)Left Atrium (1.5-4.0cm): :LV Vol(d) (76-115ml) LV Vol(s) (29-48ml) Ejec Fraction (50-65%)PV Arpit (0.6- 1.2m/s) TV Arpit (0.4-1.0m/s) : :MV E Arpit (0.8-1.0m/s)MV A Arpit (0.3-1.0m/s)LVOT Arpit (0.7-1.2m/s) Asc Ao Arpit ( 0.9-1.8m/s) : + + Doppler Measurements \T\ Calculations MV E max arpit: MV V2 max: MV P1/2t max arpit: AI max arpit: 154.9 cm/sec 217.2 cm/sec 203.6 cm/sec 403.4 cm/sec MV A max arpit: MV max PG: MV P1/2t: 59.1 msec AI max P.3 cm/sec 18.9 mmHg MVA(P1/2t): 3.7 cm2 65.2 mmHg MV E/A: 2.2 MV V2 mean: MV dec slope: AI dec slope: MV dec time: 112.4 cm/sec 233.0 cm/sec2 0.31 sec MV mean P cm/sec2 AI P1/2t: 6.1 mmHg 507.2 msec MV V2 VTI: 57.8 cm MV area (1 diam): 10.2 cm2 MV Flow area (1diam): 10.2 cm2 LV V1 max: SV(MV 1 diam): 125.9 cm/sec 588.3 ml LV V1 max PG: SI(MV 1 diam): 6.3 mmHg 368.2 ml/m2 Left Ventricle The left ventricle is normal in size. There is normal left ventricular wall thickness. The left ventricular ejection fraction is normal. Ejection Fraction = 77%. The left ventricular wall motion is normal. Right Ventricle The right ventricle is normal in size and function. Atria The left atrium is mildly dilated. Right atrial size is normal. Mitral Valve Mean transmitral gradient is 6 mmHg. There is no mitral regurgitation noted. An annuloplasty ring is noted in the mitral position. Tricuspid Valve Normal tricuspid valve. No tricuspid regurgitation. Aortic Valve The aortic valve is trileaflet. There is no aortic stenosis. Mild to moderate aortic regurgitation. Pulmonic Valve The pulmonic valve is normal in structure and function. There is no pulmonic valvular regurgitation. Great Vessels The aortic root is normal size. Pericardium/Pleural There is no pericardial effusion. Conclusion A complete two-dimensional transthoracic echocardiogram was performed (2D, M-mode, Doppler and color flow Doppler). The left ventricular ejection fraction is normal. Ejection Fraction = 77%. The left ventricular wall motion is normal. The left atrium is mildly dilated. An annuloplasty ring is noted in the mitral position. There is no mitral regurgitation noted. Mean transmitral gradient is 6 mmHg The aortic valve is trileaflet. Mild to moderate aortic regurgitation. There is no pericardial effusion. Compared with 01/25/2017, mitral valve has been repaired Final Reading Physician: Dr Yessenia Mejía electronically signed on 02/15/2017 12:07 PM Ordering Physician: Michaela Negrete Performed By: Shon Bland, CS
[2017-02-15] MEDS ORDERED: WARFARIN SODIUM 2 MG TAB PO ONE (16:00)
[2017-02-15] MEDS: HYDROCODONE/APAP 5/325 TAB PO PRN ×2 (16:31→21:08)
[2017-02-15] MEDS: LORazepam 0.5 MG TAB PO PRN (23:23)
[2017-02-16] MEDS: traMADol 50 MG TAB PO PRN (06:26)
[2017-02-16 06:41] LABS: MEAN CELL HEMOGLOBIN 33.5 pg (27.9-34.1); MEAN CELL HEMOGLOBIN CONCENTR. 33.3 g/dL (32.4-36.7); MEAN CELL VOLUME 100.4 fL (81.5-99.8); RED BLOOD CELL COUNT 2.39 10^6/uL (4.18-5.33); RED CELL DISTRIBUTION WIDTH 14.2 % (11.5-15.2)
[2017-02-16 06:53] LABS: INR 1.89 (0.83-1.16); PROTIME(PATIENT) 21.8 SEC (12.0-15.0)
[2017-02-16 07:04] LABS: ANION GAP 6 mEq/L (8-16); CALCIUM 8.2 mg/dL (8.5-10.4); CARBON DIOXIDE 27 mEq/l (22-31); CHLORIDE 103 mEq/L (97-110); CREATININE 0.6 mg/dL (0.6-1.0); GLOMERULAR FILTRATION RATE > 60; GLUCOSE 91 mg/dL (70-100); POTASSIUM 4.4 mEq/L (3.5-5.2); SODIUM 136 mEq/L (134-144)
--- NOTE | 2017-02-16 07:54 | SOAPPROG ---
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 Extubated in the OR. Hemodynamically stable early postop course without vasoactive support, tachyarrhythmias, back up pacing or sig volume overload. Tubes and wires out. Antithrombotic prophylaxis with Coumadin. Target INR 2-3. Duration pending stability of rhythm. PAF - Preop mitigation with metoprolol. Holding SR s/p CM4. BB prophylaxis, as allowed by BP. Maintenance amio dose x 4-6 wks. Antithrombotic prophylaxis as per MV. Mild to moderate AI - No significant regurgitation by intraop assessment and replacement deferred. Surveillance per cards. Acute expected blood loss anemia - Stable. No transfusions required. Lowish H/H well tolerated. 2 wk course Fe suppl started. Subjective: Feels well. Denies SOB/CP. Objective: Vital Signs Temp Pulse Resp BP Pulse Ox 37.1 C 69 16 106/60 94 02/16/17 04:00 02/16/17 04:00 02/16/17 05:45 02/16/17 04:00 02/16/17 05:45 Laboratory Results 02/16/17 06:30 02/16/17 06:30 02/15/17 02/16/17 02/17/17 05:59 05:59 05:59 Intake Total 750 1450 Output Total 1305 550 Balance -555 900 PT 21.8 SEC (12.0-15.0) H 02/16/17 06:30 INR 1.89 (0.83-1.16) H 02/16/17 06:30 Physical Exam - Physical Exam General Appearance: WD/WN, alert, no apparent distress EENT: normal ENT inspection Neck: normal inspection Respiratory: No respiratory distress Cardiac/Chest: regular rate, rhythm Abdomen: non-tender, soft, No distended Skin: normal color, warm/dry Extremities: pedal edema Neuro/Psych: no motor/sensory deficits, alert, normal mood/affect, oriented x 3 ICD10 Worksheet Patient Problems: Problems Problem Status Onset Acute blood loss anemia Acute Mild aortic valve regurgitation Acute Myxomatous mitral valve regurgitation Acute PAF (paroxysmal atrial fibrillation) Acute S/P Maze operation for atrial fibrillation Acute ~02/12/17 S/P mitral valve repair Acute ~02/12/17
[2017-02-16] MEDS: ASPIRIN 81 MG CHEWABLE TAB PO SCH (08:34)
[2017-02-16] MEDS: FERROUS SULFATE 325 MG TAB PO SCH (08:34)
[2017-02-16] MEDS: OMEGA-3 FATTY ACIDS 1,000 MG CAP PO SCH (08:35)
[2017-02-16] MEDS: PANTOPRAZOLE SODIUM 40 MG TAB PO SCH (08:36)
[2017-02-16] MEDS: CHOLECALCIFEROL VIT D3 1,000 UNITS TAB PO SCH (08:36)
[2017-02-16] MEDS: buPROPion 75 MG TAB PO SCH (08:36)
[2017-02-16 08:51] VITALS: PULSE 72; RESP 18; TEMP 98
[2017-02-16] MEDS ORDERED: METOPROLOL TARTRATE 25 MG TAB PO SCH ×2 (09:00)
[2017-02-16] MEDS ORDERED: POTASSIUM CL 20 MEQ TAB PO SCH (09:00)
[2017-02-16] MEDS ORDERED: FUROSEMIDE 40 MG TAB PO SCH (09:00)
[2017-02-16] MEDS: CYCLOSPORINE 0.05% 1 EACH BOX EACHEYE SCH (09:25)
[2017-02-16] MEDS: AMIODARONE HCL 200 MG TAB PO SCH (09:27)
[2017-02-16 12:33] VITALS: BP 98/54
[2017-02-16 13:27] VITALS: O2SAT 99
--- NOTE | 2017-02-16 15:01 | PDDCSUM ---
Discharge Summary Discharge Summary: ADMISSION DATE: 02/12/17 DISCHARGE DATE: 02/16/17 ADMISSION DX: 1. Severe mitral insufficiency 2. Persistent atrial fibrillation 3. Mild aortic insufficiency DISCHARGE DX: 1. Severe mitral insufficiency 2. Persistent atrial fibrillation 3. Mild aortic insufficiency PROCEDURES 02/12/17, Stephen Ortiz: 1. Complex mitral valve repair with #36 Physio annuloplasty ring 2. Full Bray-Maze IV with AtriClip of left atrial appendage HOSPITAL COURSE BY PROBLEM LIST 1. Severe MR s/p repair post-op ECHO revealed resolution of MR. Thromboprophylaxis as per Bray-Maze IV. 2. Persistent AF s/p Bray-Maze IV with post-op SR. Coumadin started for INR goal 2-3, duration dependent on rhythm. 3. Mild aortic insufficiency replacement deemed unnecessary as per intra-op MARIA C. Surveillance as per cardiology. CONDITION Good DISPOSITION Home, self-care ACTIVITY Pt was instructed on sternal precautions, activity limitations, and which problems to call [facility] with. Please see Discharge Plan in chart for specifics. D/C MEDICATIONS 1. Bupropion HCl 75 mg PO DAILY@1800 2. Bupropion HCl 150 mg PO DAILY 3. Cholecalciferol Vit D3 [Vitamin D3 (*)] 1,000 units PO DAILY 4. LORazepam [Ativan (*)] 0.5 mg PO HS PRN 5. [place]-3 Fatty Acids [Fish Oil 1000 mg (*)] 2,000 mg PO DAILY 6. cycloSPORINE 0.05% [Restasis Opht Drops(*)] 1 drop EACHEYE BID 7. Acetaminophen [Tylenol 325mg (*)] 325 - 650 mg PO Q4HRS PRN 8. Amiodarone HCl [Pacerone (*)] 400 mg PO DAILY #30 tab 9. Ferrous Sulfate [Ferrous Sulf 325 MG (*)] 325 mg PO DAILY #14 tab 10. Furosemide [Lasix 40 MG (*)] 40 mg PO DAILY #30 11. Hydrocodone/APAP 5/325 [Meherrin 5/325 (*)] 1 - 2 tab PO Q4HRS PRN #30 Unknown] 12. Metoprolol Tartrate [Lopressor 25 mg (*)] 12.5 mg PO BID #30 13. Potassium Cl [Klor-Con 20 meq (*)] 20 meq PO DAILY #30 14. Sennosides/Docusate Sodium [Senna-Docusate Sodium Tablet] 1 each PO BID PRN #60 15. Warfarin Sodium 2.5 mg PO DAILY AT 4PM #30 PENDING STUDIES/LABS 1. CXR - prior to surgical follow-up 2. INR at anticoagulation clinic on 02/18 at 11:30 F/U APPOINTMENTS 1. Stephen Ortiz - 02/23/17, 2:00 PM 2. Gabriel Oliva - to be determined at surgical follow-up
== END 2017-02-16 13:28 | disposition home or self-care (01) | DRG 220 ==
LOC: F3N 05:53 → F2N 06:51 → F2W 02-13 13:20
PROVIDERS: ADMIT Thoracic Surgery (Cardiothoracic Vascular Surgery); ATTEND Thoracic Surgery (Cardiothoracic Vascular Surgery)
PROC: 5A1221Z Performance of Cardiac Output, Continuous (ICD-10-PCS; principal; 2017-02-12 07:15)
PROC: B246ZZ4 Ultrasonography of Right and Left Heart, Transesophageal (ICD-10-PCS; principal; 2017-02-12 07:15)
PROC: 02UG0JZ Supplement Mitral Valve with Synthetic Substitute, Open Approach (ICD-10-PCS; principal; 2017-02-12 07:15)
PROC: 02L70CK Occlusion of Left Atrial Appendage with Extraluminal Device, Open Approach (ICD-10-PCS; principal; 2017-02-12 07:15)
DX: I08.0 Rheumatic disorders of both mitral and aortic valves (principal); I48.1 Persistent atrial fibrillation; D62 Acute posthemorrhagic anemia; I51.89 Other ill-defined heart diseases; I10 Essential (primary) hypertension; Z85.3 Personal history of malignant neoplasm of breast
CPT/HCPCS: 82947-QW; 97116-GP; 97161-GP; 97165-GO; 97530-GP; 97535-GO; G8978-GO-CK; G8978-GP-CJ; G8979-GO-CI; G8979-GP-CI; G8980-GP-CI; G8988-GO-CI; G8989-GO-CI; J0153; J0282; J0690; J1100; J1265; J1644; J1815; J1885; J2001; J2150; J2250; J2260; J2370; J2405; J2704; J2720; J2765; J2930; J3010; J7060; P9041

== ENCOUNTER → 2017-02-23 | Outpatient (CLI) | payer OTHER | LOC: FLAB 13:03 | PROVIDERS: ATTEND Thoracic Surgery (Cardiothoracic Vascular Surgery) | DX: Z08 Encounter for follow-up examination after completed treatment for malignant neoplasm (principal); J98.11 Atelectasis; R09.02 Hypoxemia; J90 Pleural effusion, not elsewhere classified ==

== ENCOUNTER → 2017-04-14 | Outpatient (CLI) | payer OTHER | LOC: FIMAGING 10:03 | PROVIDERS: ATTEND Internal Medicine Cardiovascular Disease | DX: J90 Pleural effusion, not elsewhere classified (principal); Z98.890 Other specified postprocedural states ==

== ENCOUNTER → 2017-04-26 | Outpatient (CLI) | payer OTHER | LOC: FIMAGING 15:27 | PROVIDERS: ATTEND Internal Medicine Cardiovascular Disease | DX: R05 Cough (principal); J90 Pleural effusion, not elsewhere classified; J98.4 Other disorders of lung ==

== ENCOUNTER → 2017-05-18 | Outpatient (CLI) | payer OTHER | LOC: FIMAGING 11:28 | PROVIDERS: ATTEND Internal Medicine Critical Care Medicine | PROC: 0W993ZZ Drainage of Right Pleural Cavity, Percutaneous Approach (ICD-10-PCS; principal; 2017-05-18) | DX: J90 Pleural effusion, not elsewhere classified (principal) ==

== ENCOUNTER 2017-09-14 08:04 | Day surgery (SDC) | payer OTHER ==
[2017-09-14] MEDS ORDERED: LR 1,000 ML IV ONE (08:19)
[2017-09-14 08:49] VITALS: PULSE 88
[2017-09-14 09:27] LABS: INR 1.12 (0.83-1.16); PROTIME(PATIENT) 14.6 SEC (12.0-15.0)
[2017-09-14] MEDS ORDERED: PROPRANOLOL HCL 1 MG/ML VIAL ONE (09:40)
[2017-09-14] MEDS ORDERED: PROPOFOL 200 MG/20 ML VIAL ONE ×2 (09:41→10:07)
--- NOTE | 2017-09-14 09:45 | PDANEPAE ---
ANE Past Medical History - Cardiovascular History Hx Hypertension: Yes Hx Arrhythmias: Yes Hx Chest Pain: No Hx Coronary Artery / Peripheral Vascular Disease: No Hx CHF / Valvular Disease: Yes Hx Palpitations: Yes Cardiovascular History Comment: on Metoprolol for elevated BP and palpitations. Mitral valve regurgitation-severe. Aortic valve insufficiency. - Pulmonary History Hx COPD: No Hx Asthma/Reactive Airway Disease: No Hx Recent Upper Respiratory Infection: No Hx Oxygen in Use at Home: No Hx Sleep Apnea: No Sleep Apnea Screening Result - Last Documented: Negative Pulmonary History Comment: hx of random SOB - Neurologic History Hx Cerebrovascular Accident: No Hx Seizures: No Hx Dementia: No - Endocrine History Hx Diabetes: No - Renal History Hx Renal Disorders: No - Liver History Hx Hepatic Disorders: No - Neurological & Psychiatric Hx Hx Neurological and Psychiatric Disorders: Yes Neurological / Psychiatric History Comment: depression - Cancer History Hx Cancer: Yes Cancer History Comment: breast - Congenital Disorder History Hx Congenital Disorders: Yes Congenital History Comment: hiatal hernia repaired at - GI History Hx Gastrointestinal Disorders: No Gastrointestinal History Comment: constipation - Other Health History Other Health History: osteoporosis,dry eyes - Chronic Pain History Chronic Pain: No - Surgical History Prior Surgeries: mitral valve replacement. maze procedure for atrial fib. L breast lumpectomy. bilat ovarian cyst removals ANE Review of Systems Review of Systems: - Exercise capacity METS (RN): 5 METS ANE Patient History - Allergies Allergies/Adverse Reactions: No Known Allergies Allergy (Verified 02/03/17 13:16) - Home Medications Home Medications: Bupropion HCl 75 mg PO DAILY@1800 02/09/17 [Last Taken 09/13/17 18:00] Bupropion HCl 150 mg PO DAILY 02/09/17 [Last Taken 09/13/17 08:00] Cholecalciferol Vit D3 [Vitamin D3 (*)] 1,000 units PO DAILY 02/09/17 [Last Taken 09/13/17] [place]-3 Fatty Acids [Fish Oil 1000 mg (*)] 2,000 mg PO DAILY 02/09/17 [Last Taken 09/13/17] cycloSPORINE 0.05% [Restasis Opht Drops(*)] 1 drop EACHEYE BID 02/09/17 [Last Taken 09/14/17] - NPO status NPO Since - Liquids (Date): 09/13/17 NPO Since - Liquids (Time): 23:15 NPO Since - Solids (Date): 09/13/17 NPO Since - Solids (Time): 08:30 - Smoking Hx Smoking Status: Never smoked ANE Labs/Vital Signs - Vital Signs Blood Pressure: 107/71 Heart Rate: 88 Respiratory Rate: 16 O2 Sat (%): 94 Height: 165.1 cm Weight: 56.245 kg ANE Physical Exam - Airway Neck exam: FROM Mallampati Score: Class 1 Mouth exam: normal dental/mouth exam - Pulmonary Pulmonary: no respiratory distress, no rales or rhonchi, clear to auscultation - Cardiovascular Cardiovascular: regular rate and rhythym, no murmur, rub, or gallop - ASA Status ASA Status: III ANE Anesthesia Plan Anesthesia Plan: GA with mask
[2017-09-14] MEDS ORDERED: ALBUTEROL 3 ML DEYVIAL IH PRN (09:47)
[2017-09-14] MEDS ORDERED: LR 500 ML IV PRN (09:47)
[2017-09-14] MEDS ORDERED: NALOXONE HCL 0.4 MG/ML INJ IVP PRN ×2 (09:47→11:28)
[2017-09-14] MEDS ORDERED: ONDANSETRON 4 MG/2 ML VIAL IVP PRN (09:47)
--- NOTE | 2017-09-14 09:47 | PDGENHP ---
History & Physical Chief Complaint: F/u of polyps Relevant Physical Exam: GEN: NAD. Cardiac: RRR. Lungs: CTA B. Abd: Soft ,nt, nd
[2017-09-14] MEDS ORDERED: LIDOCAINE 2% 5 ML SDV ONE (09:59)
--- NOTE | 2017-09-14 10:21 | POSTANESTH ---
Post Anesthetic Evaluation Cardiovascular Status: Normal, Stable, Similar to Pre-Op Cond Respiratory Status: Normal, Stable, Similar to Pre-op Cond. Level of Consciousness/Mental Status: Mildly Sleepy, Arousable Pain Control: Adequate, Prn Tx Ordered Nausea/Vomiting Control: Adequate, Prn Tx Ordered Complications Possibly Related to Anesthesia: None Noted
[2017-09-14 10:39] VITALS: TEMP 97.3
[2017-09-14 11:10] VITALS: RESP 23
[2017-09-14] MEDS ORDERED: fentaNYL 100 MCG/2 ML INJ ONE (11:11)
[2017-09-14] MEDS ORDERED: fentaNYL 100 MCG/2 ML INJ IVP PRN (11:28)
[2017-09-14] MEDS ORDERED: ACETAMINOPHEN 500 MG TAB PO PRN (11:37)
[2017-09-14] MEDS ORDERED: HYDROCODONE/APAP 5/325 TAB PO PRN (11:37)
[2017-09-14] MEDS ORDERED: OXYCODONE/APAP 5/325 TAB PO PRN (11:37)
[2017-09-14] MEDS ORDERED: OXYCODONE/APAP 5/325 TAB ONE (11:56)
[2017-09-14 12:03] VITALS: BP 113/74; O2SAT 94
--- NOTE | 2017-09-14 14:44 | GIREPORT ---
[facility] - Endoscopy Department Patient Name: Zaynab Ireland Procedure Date: 09/14/2017 9:41 AM Patient Type: Outpatient Attending MD/ ER Physician: Rolando Hernandez MD Procedure: Colonoscopy Indications: High risk colon cancer surveillance: Personal history of colonic polyps (tubular adenoma x 2). Her last colonoscopy was in 2011. Providers: Rolando Hernandez MD Medicines: Monitored Anesthesia Care Complications: No immediate complications. Description of Procedure: After obtaining informed consent, the scope was passed under direct vis ion. Throughout the procedure, the patient's blood pressure, pulse, and oxyg en saturations were monitored continuously. The Colonoscope with irrigatio n channel was introduced through the anus and advanced to the terminal il eum, with identification of the appendiceal orifice and IC valve. The colono scopy was performed without difficulty. The patient tolerated the procedure w ell. The quality of the bowel preparation was good. Findings: The perianal and digital rectal examinations were normal. The terminal ileum appeared normal. A 2 mm polyp was found in the ascending colon. The polyp was sessile. T he polyp was removed with a cold biopsy forceps. Resection and retrieval w ere complete. Verification of patient identification for the specimen was d one by the physician and nurse using the patient's name and date. Estimated blood loss was minimal. A few small-mouthed diverticula were found in the sigmoid colon and descending colon. The retroflexed view of the distal rectum and anal verge was normal and showed no anal or rectal abnormalities. Estimated Blood Loss: Estimated blood loss: none. Post Op Diagnosis: - The examined portion of the ileum was normal. - One 2 mm polyp in the ascending colon, removed with a cold biopsy for ceps. Resected and retrieved. - Diverticulosis in the sigmoid colon and in the descending colon. - The distal rectum and anal verge are normal on retroflexion view. Recommendation: - Discharge patient to home (with escort). - High fiber diet. - Continue present medications. - Repeat colonoscopy in 5 years for surveillance. - Await pathology results. Results are available within 10 days. - Thank you for allowing me to participate in the care of your patient. Attending Participation: I personally performed the entire procedure. Rolando Hernandez MD Rolando Hernandez MD 09/14/2017 2:43:49 PM This report has been signed electronicallyDaozzy Hernandez MD Number of Addenda: 0 Note Initiated On: 09/14/2017 9:41 AM Total Procedure Duration Time 0 hours 23 minutes 45 seconds [email or web address]
== END 2017-09-14 12:17 | disposition home or self-care (01) ==
LOC: FSGY 08:04
PROVIDERS: ATTEND Internal Medicine Gastroenterology
PROC: 0DBK8ZX Excision of Ascending Colon, Via Natural or Artificial Opening Endoscopic, Diagnostic (ICD-10-PCS; principal; 2017-09-14 09:15)
DX: D12.2 Benign neoplasm of ascending colon (principal); K57.30 Diverticulosis of large intestine without perforation or abscess without bleeding
CPT/HCPCS: J1800; J2704; J3010

== ENCOUNTER → 2017-12-17 | Outpatient (CLI) | payer OTHER | LOC: FIMAGING 14:34 | PROVIDERS: ATTEND Internal Medicine | DX: Z12.31 Encounter for screening mammogram for malignant neoplasm of breast (principal); Z85.3 Personal history of malignant neoplasm of breast; Z80.3 Family history of malignant neoplasm of breast ==

== ENCOUNTER → 2019-01-04 | Outpatient (CLI) | payer OTHER | LOC: FIMAGING 13:23 | PROVIDERS: ATTEND Internal Medicine | DX: Z12.31 Encounter for screening mammogram for malignant neoplasm of breast (principal); Z13.820 Encounter for screening for osteoporosis; M81.0 Age-related osteoporosis without current pathological fracture; Z78.0 Asymptomatic menopausal state; Z85.3 Personal history of malignant neoplasm of breast ==